=== PATIENT | female | born 1930 | race African-American/Black ===

== ENCOUNTER 2019-06-19 07:31 | Day surgery (SDC) | payer MEDICARE, BC ==
[~2019-06-19] VITALS: Ht 157.5 cm; Wt 77.1 kg
[~2019-06-19 07:31] MED LIST: SIMV20TA6 PO
[2019-06-19] MEDS ORDERED: PHENYLEPHRINE HCL 10% OPHTH DROPS 5ML RIGHTEYE ONE (07:55)
[2019-06-19] MEDS ORDERED: CYCLOPENTOLATE HCL 1% OPHTH DROPS 2ML RIGHTEYE NR (07:55)
[2019-06-19] MEDS ORDERED: TROPICAMIDE 1% OPHTH DROPS 15ML RIGHTEYE ONE (07:55)
[2019-06-19] MEDS ORDERED: LACTATED RINGERS 1,000 ML IV SCH (08:30)
[2019-06-19] MEDS ORDERED: SODIUM CHLORIDE 0.9% 500 ML IV ONE (08:45)
[2019-06-19] MEDS ORDERED: HYALURONATE SODIUM 14 MG/ML 0.85ML SYRINGE IO ONE ×2 (09:12→12:33)
[2019-06-19] MEDS ORDERED: BALANCED SALT IRRIG SOLN COMB1 500ML OP SCH (09:30)
[2019-06-19] MEDS ORDERED: FENTANYL CITRATE/PF 50MCG/ML 2ML VIAL ONE (09:37)
[2019-06-19] MEDS ORDERED: MIDAZOLAM HCL 2 MG/2 ML VIAL ONE (09:37)
[2019-06-19] MEDS ORDERED: KETOROLAC 30MG/ML VIAL ONE (10:17)
[2019-06-19] MEDS ORDERED: FURO-152 PO (11:08)
[2019-06-19] MEDS ORDERED: ASPI-1393 PO (11:08)
[2019-06-19] MEDS ORDERED: LETR2.5T6 PO (11:08)
[2019-06-19] MEDS ORDERED: POTA10TA15 PO (11:08)
[2019-06-19] MEDS ORDERED: LEVO500T89 PO (11:08)
[2019-06-19] MEDS ORDERED: GABA-290 PO (11:08)
[2019-06-19] MEDS ORDERED: DOCU-138 PO (11:08)
[2019-06-19] MEDS ORDERED: MELO-105 PO (11:08)
== END 2019-06-19 11:30 | disposition home or self-care (01) ==
LOC: OR 07:31
PROVIDERS: ATTEND Ophthalmology
DX: H25.89 Other age-related cataract (principal); I10 Essential (primary) hypertension; J44.9 Chronic obstructive pulmonary disease, unspecified; M19.042 Primary osteoarthritis, left hand; M19.041 Primary osteoarthritis, right hand; E78.00 Pure hypercholesterolemia, unspecified; Z79.82 Long term (current) use of aspirin; Z79.899 Other long term (current) drug therapy; Z85.3 Personal history of malignant neoplasm of breast; Z98.890 Other specified postprocedural states
CPT/HCPCS: 66984; J1885; J2250; J3010; J3490; J7040; V2632